=== PATIENT | female | born 1985 | race Caucasian/White ===

== ENCOUNTER 2018-04-29 03:45 | Inpatient (IN) | payer OTHER ==
[~2018-04-29] VITALS: Ht 147.3 cm; Wt 61.9 kg
--- NOTE | 2018-04-29 04:12 | NSTRPT ---
NST Information Datetime Report Generated by CPN: 04/29/2018 04:12 Datetime: 04/22/2018 14:06 NST Information EGA: 37.2 Test Number: 4 Time on Monitor: 04/22/2018 14:40 Time off Monitor: 04/22/2018 15:05 NST Duration (Min): 25 Reason for NST: Other Reason for NST Other: Asthma Test and Monitor Explained: Monitor Explained; Test Explained; Verbalized Understanding Pulse: 80 Resp: 18 SBP: 116 DBP: 63 Test Evaluation NST Interventions: None Patient States Movement: Present Contraction Frequency: none FHR Baseline : 130 Variability: Moderate 6-25bpm Accelerations: 15X15 Decelerations: None FHR Category: Category I NST Results: Reactive Comments: To u/s. ELLEN 9.6cm. CEPHALIC. Left pyelectasis=9.3mm. Severe hydrocele noted. Electronically Signed By E-Signature: with User ID: [email or web address] Datetime: 04/18/2018 14:30 NST Information EGA: 36.5 NST Duration (Min): 47 Datetime: 04/15/2018 10:12 NST Information EGA: 36.2 NST Duration (Min): 26 Datetime: 04/10/2018 11:00 NST Information EGA: 35.4 NST Duration (Min): 37
[2018-04-29] MEDS ORDERED: PNV11TAB PO (04:13)
[2018-04-29 04:14] VITALS: BP 134/79; PULSE 89; RESP 18; Ht 147.3 cm; Wt 61.9 kg
[2018-04-29] MEDS ORDERED: LACTATED RINGER'S 1,000 ML IV SCH (04:15)
[2018-04-29] MEDS ORDERED: LIDOCAINE 1% (MPF) 30 ML INJ INJ PRN (04:30)
[2018-04-29] MEDS ORDERED: METHYLERGONOVINE 0.2 MG INJ IM PRN ×2 (04:30→05:30)
[2018-04-29] MEDS ORDERED: CARBOPROST 250 MCG INJ IM PRN ×3 (04:30→08:00)
[2018-04-29] MEDS ORDERED: IBUPROFEN 600 MG TAB PO PRN (04:30)
[2018-04-29] MEDS ORDERED: BUTORPHANOL 2 MG INJ IV PRN (04:30)
[2018-04-29] MEDS ORDERED: MISOPROSTOL 200 MCG TAB PR PRN ×3 (04:30→08:00)
[2018-04-29] MEDS ORDERED: OXYTOCIN 30 UNITS/LR 500 ML IV PRN ×3 (04:30→08:00)
[2018-04-29] MEDS ORDERED: OXYTOCIN 30 UNITS/LR 500 ML IV SCH ×2 (04:30→05:17)
[2018-04-29] MEDS ORDERED: AMPICILLIN 2 GM/NS (PMX) 100 ML IV ONE (04:30)
--- NOTE | 2018-04-29 04:35 | TRIAGE ---
OB Triage Datetime Report Generated by CPN: 04/29/2018 04:35 Datetime: 04/29/2018 04:23 Assessment Type: Admission Assessment Vaginal Bleeding: None Maternal Assessment Level of Consciousness: Fully Conscious DTR's/Clonus: DTRs 2+; No Clonus Headache: Denies Blurred Vision: No Respiratory Effort: Unlabored; Regular Rhythm; Equal Expansion Breath Sounds, Left: Clear and Equal Breath Sounds, Right: Clear and Equal Nausea/Vomiting: Denies RUQ Epigastric Pain: Denies Lower Extremities Edema: None Degree: None Upper Extremities Edema: None Degree: None Facial Edema: None Fall Risk Assessment History of Falling: (0) No Secondary Diagnosis: (0) No Ambulatory Aid: (0) Bedrest/Nurse Assist IV Therapy: (0) No Gait: (0) Normal/Bedrest/Immobile Mental Status: (0) Oriented to Own Ability Fall Score: 0 Fall Risk Score Definition: No Risk: No action required Labor Evaluation Frequency: 1.5-2 Duration (sec)2399: 60-80 Quality: Strong Pattern: Normal: <= 5 Contractions in 10 Minutes Resting Tone [place]: Relaxed Heart Rate FHR Baseline Rate: 125 Variability: Minimal - Undetectable to <=5 bpm Accelerations: None Decelerations: None Pain Assessment Pain Scale: 9 Pain Presence: Intermittent Pain Type: Contraction Pain Location: Abdomen Pain Goal: 3 Membrane Status: Bulging Datetime: 04/29/2018 04:17 Time of Arrival: 04/29/2018 04:20 EGA: 38.2 Arrived By: Wheelchair Arrived From: Home Chief Complaint: UC's since 0100. Movement: Present Contractions: Regular Time Contractions Began: 04/29/2018 01:00 Contractions: Every 3 min Rupture of Membranes: Denies Vaginal Bleeding: None Vaginal Discharge: Denies Recent Sexual Intercouse: Denies Abdominal Trauma: Not Applicable Patient Complaints: Contractions Time Provider Notified: 04/29/2018 04:10 Provider Notified: Dr. Coe Initial Plan: CEFM, VE Datetime: 04/29/2018 04:02 Vaginal Exam Dilatation (cms): 8.0 Effacement (%): 90 Station: -2 Exam By: Calderon Garcia RN Vaginal Bleeding: Normal Show Cervix, Consistency: Soft Cervix, Position: Anterior Presentation 'A': Cephalic Datetime: 04/29/2018 03:58 Stage of : OB Triage Assessment Type: Triage Maternal Assessment Level of Consciousness: Fully Conscious DTR's/Clonus: DTRs 2+; No Clonus Headache: Denies Blurred Vision: No Respiratory Effort: Unlabored; Regular Rhythm; Equal Expansion Breath Sounds, Left: Clear and Equal Breath Sounds, Right: Clear and Equal Nausea/Vomiting: Denies RUQ Epigastric Pain: Denies Facial Edema: None Temperature Route: Oral Fall Risk Assessment History of Falling: (0) No Secondary Diagnosis: (0) No Ambulatory Aid: (0) Bedrest/Nurse Assist IV Therapy: (0) No Gait: (0) Normal/Bedrest/Immobile Mental Status: (0) Oriented to Own Ability Fall Score: 0 Fall Risk Score Definition: No Risk: No action required Pain Assessment Pain Scale: 8 Pain Presence: Intermittent Pain Type: Cramping Pain Location: Abdomen Pain Relief Measures: Comfort Measures
[2018-04-29] MEDS ORDERED: FENTAnyl 2MCG/ML-ROPIV 0.2% 0 ML ONE (04:46)
--- NOTE | 2018-04-29 04:48 | PREAC ---
Date/Time of Note Date/Time of Note DATE: 04/29/18 TIME: 04:47 Anesthesia Eval and Record Evaluation Time Pre-Procedure Interview DATE: 04/29/18 TIME: 04:47 Age 32 Sex female NPO: 8 hrs Preoperative diagnosis labor Planned procedure epidural Past Medical History Past Medical History: Includes Pulm: Asthma Surgery & Anesthesia Issues No known issue Meds Anticoagulation: No Beta Marilyn within 24 hr: No Reason Beta Marilyn not given: Pt. not on B-Marilyn Reported Medications [id number] ( 19) 1 Each Tablet, 1 TAB PO DAILY, TAB 04/29/18 Current Medications Lactated Ringer's 1,000 ml @ 125 mls/hr Q8H IV ; Start 04/29/18 at 04:15 Ampicillin 100 ml @ 100 mls/hr ONCE ONCE IV ; Start 04/29/18 at 04:30; Stop 04/29/18 at 05:29 Ampicillin 50 ml @ 100 mls/hr Q4H IV ; Start 04/29/18 at 08:30 Butorphanol Tartrate (Stadol) 2 mg Q2H PRN IV .PAIN; Start 04/29/18 at 04:30 Lidocaine (Xylocaine 1% (Mpf)) 30 ml ONCE PRN INJ .EPISIOTOMY; Start 04/29/18 at 04:30 Oxytocin/Lactated Ringer's 500 ml @ 500 mls/hr ONCE POST IV ; Start 04/29/18 at 04:30 Oxytocin/Lactated Ringer's 500 ml @ 125 mls/hr POST IV ; Start 04/29/18 at 04:30 Ibuprofen (Motrin) 600 mg ONCE PRN PO .PAIN 1-5; Start 04/29/18 at 04:30 Oxytocin/Lactated Ringer's 500 ml @ 0 mls/hr ONCE PRN IV .VAGINAL BLEEDING; Start 04/29/18 at 04:30 Methylergonovine Maleate (Methergine) 0.2 mg ONCE PRN IM .VAGINAL BLEEDING; Start 04/29/18 at 04:30 Carboprost Tromethamine (Hemabate) 250 mcg ONCE PRN IM .VAGINAL BLEEDING; Start 04/29/18 at 04:30 Misoprostol (Cytotec) 1,000 mcg ONCE PRN SD .VAGINAL BLEEDING; Start 04/29/18 at 04:30 Meds reviewed: Yes Allergies Coded Allergies: No Known Allergy (Unverified , 04/29/18) Allergies Reviewed: Yes Labs/Studies Labs Reviewed: Reviewed by anesthesiologist test: N/A Pre-procedure Exam Last vitals Vital Signs Date Temp Pulse Resp B/P (MAP) Pulse Ox O2 O2 Flow FiO2 Time Delivery Rate 04/29/18 99.1 89 18 134/79 Room Air 04:14 (97) Airway: Adequate mouth opening, Adequate thyromental dist Mallampati: Mallampati II Teeth: Normal Lung: Normal Heart: Normal ASA Physical Status ASA physical status: 2 Emergency: None Pre-operative Attestations Prior to commencing anesthesia and surgery, the patient was re-evaluated, there was verification of: *The patient's identity *The results of appropriate recent lab work and preoperative vital signs *The above evaluation not changing prior to induction *Anesthetic plan, risk benefits, alternative and complications discussed with patient/family; questions answered; patient/family understands, accepts and wishes to proceed. TIMOTEO CORTES DO Apr 29, 2018 04:48
--- NOTE | 2018-04-29 05:12 | LDN ---
Date/Time of Note Date/Time of Note DATE: 04/29/18 TIME: 05:10 Delivery Summary of a viable baby boy weighing 3580 grams or 7# 14 oz, 19.5" long, and with Apgars of 9/9. Weeks of Gestation 38w 2d Placenta Delivered: Spontaneously Meconium: none Episiotomy: No Perineal laceration: 0 Anesthesia type: None Estimated blood loss: 150 Sponge & Needle done & correct: Yes All needle counts correct: Yes Any foreign bodies felt in the: No (vagina) Infant Delivery Information Sex Sex: male Apgars 1 Minute: 9 5 Minute: 9 Suctioning Nose & mouth suctioned at [place]: Yes Delee suction performed: No Umbilical Cord Umbilical cord with: 3 Vessels Cord presentations: no nuchal cord Cord Blood was obtained: Yes Mother & Baby Disposition Disposition Mom & Baby to Maternity; Good: Yes Baby to NICU: No BRIEN BASILIO MD Apr 29, 2018 05:12
[2018-04-29] MEDS ORDERED: LACTATED RINGER'S 1,000 ML IV* SCH ×2 (05:17→07:43)
--- NOTE | 2018-04-29 05:17 | HP ---
Date/Time of Note Date/Time of Note DATE: 04/29/18 TIME: 05:13 OB - History Hx of Present Free Text/Dictation 32 y.o. A1 with an IUP at 38w 2d arrived in active labor at 8 cm dilated and progressed rapidly to delivery. Chief Complaint: Labor Estimated Due Date: May 11, 2018 : 4 Para: 2 Spontaneous : 1 Care: Good Care Ultrasounds: Normal mid trimester US Obstetrical Complications: None Medical Complications: Respiratory (asthma) Other Concerns: None. Past Family/Social History * Past Medical, Surgical, Family and Obstetric Histories reviewed from chart. Blood Type: O+ Rubella: immune RPR/VDRL: Negative GBS Status: Negative HBsAG: Negative OB Admission Exam Vital Signs Vital Signs Vital Signs Date Temp Pulse Resp B/P (MAP) Pulse Ox O2 O2 Flow FiO2 Time Delivery Rate 04/29/18 99.1 89 18 134/79 Room Air 04:14 (97) Physical Exam HEENT: WNL Heart: Rhythm Normal Lungs: Clear Abdomen: WNL Extremities: Normal Reflexes: Normal Effacement: 100% Station: -2 Amniotic Fluid: Clear Heart Rate: 140's Accelerations: Accelerations Present Decelerations: No Decelerations Varibility: Moderate Contractions on Admission: < 5 Minutes Apart Intensity: Firm Last 72 hours Lab Results CBC & BMP 04/29/18 04:29 OB Assessment/Plan Reason for admission: active labor Plan: Expectant Management BRIEN BASILIO MD Apr 29, 2018 05:17
[2018-04-29] MEDS ORDERED: IBUPROFEN 600 MG TAB ONE (05:25)
[2018-04-29] MEDS ORDERED: WITCH HAZEL/GLYCERIN PAD PR PRN ×2 (05:30→08:00)
[2018-04-29] MEDS ORDERED: HYDROCODONE/APAP (5/325) TAB PO PRN ×3 (05:30→08:00)
[2018-04-29] MEDS ORDERED: LANOLIN HPA 1 PKT TOP PRN ×2 (05:30→08:00)
[2018-04-29] MEDS: OXYTOCIN 30 UNITS/LR 500 ML IV SCH ×2 (05:57→09:12)
[2018-04-29] MEDS ORDERED: IBUPROFEN 600 MG TAB PO SCH (06:00)
[2018-04-29] MEDS ORDERED: DIPHENHYDRAMINE 25 MG CAP PO PRN (08:00)
[2018-04-29] MEDS ORDERED: DIPHENHYDRAMINE 50 MG INJ IV PRN (08:00)
[2018-04-29] MEDS ORDERED: DIBUCAINE 1% 30 GM OINT TOP PRN (08:00)
[2018-04-29] MEDS ORDERED: ONDANSETRON 4 MG TAB PO PRN (08:00)
[2018-04-29] MEDS ORDERED: SENNA/DOCUSATE NA (8.6MG/50MG) TAB PO PRN (08:00)
[2018-04-29] MEDS ORDERED: LABETALOL 200 MG TAB PO PRN (08:00)
[2018-04-29] MEDS ORDERED: BENZOCAINE 20% 56 ML SPRAY TOP PRN (08:00)
[2018-04-29] MEDS ORDERED: ONDANSETRON 4 MG INJ IV PRN (08:00)
[2018-04-29] MEDS ORDERED: MAGNESIUM HYDROXIDE 30ML CUP PO PRN (08:00)
[2018-04-29] MEDS ORDERED: NA PHOSPHATE/BIPHOS 133 ML ENEMA PR PRN (08:00)
[2018-04-29 08:30] VITALS: BP 128/64; PULSE 84; RESP 20
[2018-04-29] MEDS ORDERED: AMPICILLIN 1 GM/NS (PMX) 50 ML IV SCH (08:30)
[2018-04-29] MEDS: SENNA/DOCUSATE NA (8.6MG/50MG) TAB PO SCH ×2 (09:13→21:32)
[2018-04-29 12:25] VITALS: BP 120/77; PULSE 87; RESP 16
[2018-04-29] MEDS: IBUPROFEN 600 MG TAB PO SCH ×2 (12:25→18:01)
[2018-04-29 15:42] VITALS: BP 107/73; PULSE 79; RESP 18
[2018-04-29 20:45] VITALS: BP 107/64; PULSE 87; RESP 17
[2018-04-30] MEDS: IBUPROFEN 600 MG TAB PO SCH ×5 (00:29→23:42)
[2018-04-30 04:00] VITALS: BP 121/81; PULSE 81; RESP 18
[2018-04-30 07:50] VITALS: BP 120/85; PULSE 70; RESP 20
[2018-04-30] MEDS: SENNA/DOCUSATE NA (8.6MG/50MG) TAB PO SCH ×2 (08:46→21:15)
--- NOTE | 2018-04-30 11:11 | DS ---
Date/Time of Note Date/Time of Note DATE: 04/30/18 TIME: 11:11 Obstetrical Discharge Record Final Diagnosis Final Diagnosis: Term delivered Vaginal Delivery Obstetrical Delivery: Spontaneous Complications Augmentation: No Induction: No Rupture of Membranes: No Condition on Discharge Physical Assessment Voiding: Yes Bowel Movement: Yes Breast: Soft, non-tender, Filling Fundus: Firm Abdomen and Incision: soft, not tender Calf Tenderness: No Patient Condition: Good URIEL BRUCE MD Apr 30, 2018 11:11
[2018-04-30 15:55] VITALS: BP 125/77; PULSE 90; RESP 20
[2018-04-30 20:00] VITALS: BP 111/72; PULSE 76; RESP 18
[2018-05-01 03:30] VITALS: BP 119/70; PULSE 71; RESP 18
[2018-05-01] MEDS: IBUPROFEN 600 MG TAB PO SCH ×2 (05:29→12:00)
[2018-05-01 08:00] VITALS: BP 118/80; PULSE 65; RESP 18
[2018-05-01] MEDS ORDERED: MEASLES,MUMPS,RUBELLA VACCINE INJ SC* ONE (09:00)
[2018-05-01] MEDS ORDERED: DIPHTH/TET/ACEL PERTUSS (ADULT) 0.5 ML VIAL IM* ONE (09:00)
[2018-05-01] MEDS ORDERED: VARICELLA VACCINE LIVE/PF 1,350 UNIT/0.5 ML ML SC* ONE (09:00)
[2018-05-01] MEDS: SENNA/DOCUSATE NA (8.6MG/50MG) TAB PO SCH (09:31)
== END 2018-05-01 14:27 | disposition home or self-care (01) | DRG 807 ==
LOC: OBT 03:45 → L-D 03:45 → OBT 04:05 → PP1 08:28
PROVIDERS: ADMIT Specialist; ATTEND Specialist
PROC: 10E0XZZ Delivery of Products of Conception, External Approach (ICD-10-PCS; principal; 2018-04-29)
DX: O62.3 Precipitate labor (principal); Z37.0 Single live birth; Z3A.38 38 weeks gestation of pregnancy
CPT/HCPCS: 85025; 85610; 85730; 86592; 86850; 86900; 86901; 87340; 90716; G0463; J2590; J3010; J7120